=== PATIENT | male | born 1950 | race Caucasian/White ===

== ENCOUNTER 2022-01-04 13:17 | Emergency (ER) | payer MEDICARE, OTHER ==
[~2022-01-04 13:17] MED LIST: PRINIVIL10 MG PO
[2022-01-04 13:54] LABS: BASOPHIL 1.1 % (0-2); EOSINOPHIL 3.5 % (0-7); HCT 46.3 % (42.0-52.0); HGB 16.2 g/dl (13.2-18.0); LYMPHOCYTE 30.4 % (15-48); MCH 31.7 pg (25.0-31.0); MCV 90.6 fL (78.0-100.0); MONOCYTE 8.8 % (0-12); MPV 9.7 fL (6.0-9.5); NEUTROPHIL 55.1 % (41-80); NRBC 0; PLT 289 K/uL (150-400); RBC 5.11 M/uL (4.70-6.00); RDW 11.7 % (11.5-14.0); WBC 8.3 K/uL (4.0-10.5)
[2022-01-04 14:19] LABS: ALBUMIN 3.8 g/dL (3.4-5.0); BILIRUBIN - TOTAL 1.6 mg/dL (0.2-1.0); BUN/CREAT RATIO (CALC) 15.8 RATIO; CREATININE 1.2 mg/dL (0.67-1.17); POTASSIUM 4.2 mmol/L (3.5-5.1); TOTAL PROTEIN 6.8 g/dL (6.4-8.2)
[2022-01-04] MEDS ORDERED: ANTIVERT25 MG PO (16:51)
== END 2022-01-04 16:58 | disposition home or self-care (01) ==
LOC: FER 13:17
PROVIDERS: Emergency Medicine
DX: R42 Dizziness and giddiness (principal); I10 Essential (primary) hypertension; Z79.899 Other long term (current) drug therapy
CPT/HCPCS: 36415; 70450; 71045; 80053; 84484; 85025; 93005; J7030